=== PATIENT | female | born 1985 | race Caucasian/White ===

== ENCOUNTER 2018-08-20 19:21 | Emergency (ER) | payer OTHER ==
--- NOTE | 2018-08-20 19:48 | ED Physician Documentation ---
PD HPI UPPER EXT INJURY - Stated complaint Stated Complaint: LT FINGER VS KNIFE - Chief complaint Chief Complaint: Laceration - History obtained from History obtained from: Patient - History of Present Illness Location: Left (This is a right-handed woman not up-to-date on tetanus who cut the tip off her left middle finger at home with a knife just prior to arrival.) Review of Systems Constitutional: reports: Reviewed and negative Throat: reports: Reviewed and negative Cardiac: reports: Reviewed and negative PD PAST MEDICAL HISTORY - Present Medications Home Medications: Ambulatory Orders Medication Instructions Recorded Confirmed No Known Home Medications 08/20/18 08/20/18 - Allergies Allergies/Adverse Reactions: Allergies Allergy/AdvReac Type Severity Reaction Status Date / Time ciprofloxacin [From Cipro] Allergy Anaphylaxis Verified 08/20/18 19:35 latex Allergy Hives Verified 08/20/18 19:35 PD ED PE NORMAL - Vitals Vital signs reviewed: Yes - General General: Alert and oriented X 3, No acute distress - Extremities Extremities: Other (There is a fingertip avulsion involving skin of the left middle finger. No nail bed is involved. It is right at a square centimeter.) - Neuro Neuro: Alert and oriented X 3, Normal speech Results - Vitals Vitals: Vital Signs - 24 hr 08/20/18 19:33 Temperature 36.7 C Heart Rate 81 Respiratory 18 Rate Blood Pressure 144/81 H O2 Saturation 99 Oxygen O2 Source Room air PD MEDICAL DECISION MAKING - ED course ED course: The wound was irrigated and dressed with Gelfoam and tube gauze. Primary care follow-up for wound care and potential surgical referral for skin grafting was discussed if not filling in. Departure - Departure Disposition: 01 Home, Self Care Clinical Impression: Fingertip avulsion Qualifiers: Encounter type: initial encounter Qualified Code(s): S61.209A - Unspecified open wound of unspecified finger without damage to nail, initial encounter Condition: Good Record reviewed to determine appropriate education?: Yes Instructions: ED Laceration Amputation Finger Tip Open Tx Comments: [place] observation, if it does not fill in they will need to refer you to a plastic surgeon for a skin graft. Your blood pressure was elevated today on check into the emergency department. This does not mean that you have hypertension, it is a common phenomenon to come to the emergency department and have elevated blood pressure. I recommend that you see your primary care physician within the week to have it rechecked when you are feeling better.
[2018-08-20] MEDS ORDERED: TETANUS/DIPHTHERIA/PERTUSSIS 0.5 ML SYRINGE IM ONE (19:52)
[2018-08-20 20:18] VITALS: BP 122/67
== END 2018-08-20 20:20 | disposition home or self-care (01) ==
LOC: ED 19:21
DX: S61.213A Laceration without foreign body of left middle finger without damage to nail, initial encounter (principal); W26.0XXA Contact with knife, initial encounter; Y93.G1 Activity, food preparation and clean up; Y92.000 Kitchen of unspecified non-institutional (private) residence as the place of occurrence of the external cause; Z23 Encounter for immunization; R03.0 Elevated blood-pressure reading, without diagnosis of hypertension
CPT/HCPCS: 90471; 99282; 99283

== ENCOUNTER 2018-09-16 11:59 | Outpatient (CLI) | payer OTHER ==
--- NOTE | 2018-09-16 21:46 | MRI Report ---
Reason: LOW BACK PAIN Procedure Date: 09/16/2018 Accession Number: [id number] / [id number] Procedure: MRI - Lumbar Spine W/O CPT Code: FULL RESULT: EXAM: MRI LUMBAR SPINE WITHOUT CONTRAST EXAM DATE: 09/16/2018 12:47 PM. CLINICAL HISTORY: Low back pain. COMPARISON: None. TECHNIQUE: Multiplanar, multisequence T1-weighted and fluid-sensitive sequences of the lumbar spine from T12 to S1 without contrast. Other: None. FINDINGS: Spinal Canal: The conus terminates at T12-L1. The conus medullaris and cauda equina are unremarkable. Alignment: No scoliosis or spondylolisthesis. Bone Marrow: Five [id number] lumbar vertebral bodies are assumed. Mild degenerative endplate edema at L5 inferiorly. No fracture or suspicious bony lesion. Disk Levels/Facets: T12-L1: Unremarkable. L1-L2: Unremarkable. L2-L3: Unremarkable. L3-L4: Unremarkable. L4-L5: Mild disk bulge and T2 hypointensity of the disk. Small posterior T2 hyperintense annular fissure. Mild bilateral facet arthropathy. No stenosis. L5-S1: Minimal disk bulge and T2 hypointensity of the disk. Small posterior T2 hyperintense annular fissure. Mild bilateral facet arthropathy. No stenosis. Musculature: Normal. No edema or fatty atrophy. Other: The partially visualized retroperitoneum is unremarkable. IMPRESSION: 1. Degenerative disk disease and mild bulges L4-L5 and L5-S1 with posterior annular fissures. 2. No focal disk herniation. No significant central canal or foraminal stenosis. Comment: The following findings are so common in adults without low back pain that while we report their presence, they must be interpreted with caution and in the context of the clinical situation. (Reference Evangelinak et al, Spine 2001) Prevalence of findings in patients without low back pain: Disk degeneration (any evidence): 92% Disk desiccation/T2 signal loss: 83% Disk height loss: 56% Disk bulge: 64% Disk protrusion: 32% Annular tear/high intensity zone: 38% RADIA
== END 2018-09-16 12:00 | disposition home or self-care (01) ==
LOC: DI 11:59
PROVIDERS: ATTEND Registered Nurse Diabetes Educator
DX: M51.37 Other intervertebral disc degeneration, lumbosacral region (principal)
CPT/HCPCS: 72148